=== PATIENT | male | born 1995 | race American Indian/Alaskan Native ===

== ENCOUNTER 2021-12-24 10:59 | Emergency (ER) | payer SELFPAY | END 2021-12-24 11:10 | disposition left against medical advice (07) | LOC: MW.ED 10:59 | DX: Z53.21 Procedure and treatment not carried out due to patient leaving prior to being seen by health care provider (principal) ==

== ENCOUNTER 2021-12-25 03:20 | Emergency (ER) | payer SELFPAY ==
[2021-12-25] MEDS ORDERED: Ketorolac 30 MG/ML SDV IM STA (03:32)
[2021-12-25] MEDS ORDERED: Diphtheria,Pertussis(Acell),Tetanus Vaccine 0.5 ML Syringe IM ONE (03:33)
== END 2021-12-25 04:18 | disposition home or self-care (01) ==
LOC: MW.ED 03:20
DX: S00.531A Contusion of lip, initial encounter (principal); S60.812A Abrasion of left wrist, initial encounter; M79.602 Pain in left arm; M25.532 Pain in left wrist; M79.632 Pain in left forearm; Z23 Encounter for immunization; Y04.0XXA Assault by unarmed brawl or fight, initial encounter
CPT/HCPCS: 73080; 73090; 73110; 90471; 90715; 96372; 99284; J1885

== ENCOUNTER 2022-01-02 21:12 | Emergency (ER) | payer SELFPAY | END 2022-01-02 23:04 | disposition home or self-care (01) | LOC: MW.ED 21:12 | DX: Z02.89 Encounter for other administrative examinations (principal) | CPT/HCPCS: 99282 ==